=== PATIENT | male | born 1980 | race Caucasian/White ===

== ENCOUNTER 2016-12-01 09:51 | Emergency (ER) | payer SELFPAY ==
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
== END 2016-12-01 13:21 | disposition home or self-care (01) ==
LOC: EDBD 09:51 → CED 09:51
DX: S01.511A Laceration without foreign body of lip, initial encounter (principal); S01.81XA Laceration without foreign body of other part of head, initial encounter; W51.XXXA Accidental striking against or bumped into by another person, initial encounter; Y92.89 Other specified places as the place of occurrence of the external cause
CPT/HCPCS: 12011; 70450; 70486; 72040; 73030; 90715; 96372; 99283; J1885